=== PATIENT | female | born 1985 | race African-American/Black ===

== ENCOUNTER 2020-11-30 23:04 | Emergency (ER) | payer SELFPAY ==
[~2020-11-30] VITALS: Ht 167.6 cm; Wt 105.0 kg
[2020-12-01] MEDS ORDERED: HYDROCODONE/ACETAMINOPHEN 5/325MG TABLET PO STA (00:36)
[2020-12-01] MEDS ORDERED: CEPHALEXIN 250MG CAPSULE PO ONE (00:45)
[2020-12-01] MEDS ORDERED: T3 PO (02:53)
[2020-12-01] MEDS ORDERED: AMOX-494 MT (02:54)
[2020-12-01 03:17] VITALS: BP 134/98
== END 2020-12-01 03:17 | disposition home or self-care (01) ==
LOC: ER 23:04
DX: R68.84 Jaw pain (principal); I16.0 Hypertensive urgency
CPT/HCPCS: 93005; 99283